=== PATIENT | male | born 1990 | race Caucasian/White ===

== ENCOUNTER 2024-06-21 19:16 | Emergency (ER) | payer BC ==
[~2024-06-21] VITALS: Ht 175.3 cm; Wt 63.5 kg
[2024-06-21 19:17] VITALS: PULSE 58; RESP 18; TEMP 98.7
[2024-06-21 19:37] LABS: BASOPHILS # (AUTO) 0.1 (0.0-0.1); BASOPHILS % 0.7 % (0.0-1.0); EOSINOPHILS # (AUTO) 0.3 (0.0-0.4); EOSINOPHILS % 4.5 % (0.0-6.0); HEMATOCRIT 43.1 % (38.2-49.6); HEMOGLOBIN 15.4 g/dL (14.0-18.0); LYMPHOCYTES # (AUTO) 2.2 (1.0-3.2); LYMPHOCYTES % 29.9 % (18.0-39.1); MEAN CORPUSCULAR HGB CONC 35.7 g/dL (31-35); MEAN CORPUSCULAR VOLUME 86.7 fL (81-99); MONOCYTES # (AUTO) 0.5 (0.2-0.8); MONOCYTES % 7.1 % (4.4-11.3); NEUTROPHILS # (AUTO) 4.2 (2.1-6.9); NEUTROPHILS % 57.7 % (38.7-80.0); PLATELET COUNT 261 x10e3/uL (140-360); RED BLOOD COUNT 4.97 x10e6/uL (4.3-5.7); RED CELL DISTRIBUTION WIDTH 12.1 % (11.7-14.4)
[2024-06-21] MEDS: ONDANSETRON HCL INJ 2MG/ML 2ML 2 MG/ML VIAL IV STA (19:51)
[2024-06-21] MEDS: Morphine 4mg INJECTION 4 MG/ML INJ IV STA (19:51)
[2024-06-21 19:57] LABS: ANION GAP 15.7 mmol/L (8-16); CALCIUM 9.1 mg/dL (8.4-10.2); CREATININE, SERUM 0.98 mg/dL (0.72-1.25); POTASSIUM 3.7 mmol/L (3.5-5.1)
[2024-06-21] MEDS ORDERED: LIDOCAINE HCL 1% LOCAL INJ 20 ML VIAL ONE (20:09)
[2024-06-21] MEDS ORDERED: BACITRACIN ZINC 0.9GM TP ONE ×2 (20:56→21:00)
[2024-06-21] MEDS ORDERED: AMOX TR-K CLV1 EAC2 PO (21:03)
[2024-06-21] MEDS: TETANUS/DIPHTHERIA TOX ADULT 0.5 ML SYR IM ONE (21:13)
[2024-06-21] MEDS ORDERED: HYDROCODON-ACE1 EAC9 PO ×2 (21:14→23:00)
[2024-06-21 21:25] VITALS: BP 126/78; PULSE 64; RESP 18; TEMP 98; O2SAT 98
== END 2024-06-21 21:28 | disposition home or self-care (01) ==
LOC: ER 19:19
DX: S81.811A Laceration without foreign body, right lower leg, initial encounter (principal); W26.8XXA Contact with other sharp object(s), not elsewhere classified, initial encounter; Y92.89 Other specified places as the place of occurrence of the external cause
CPT/HCPCS: 12005; 36415; 73590; 73610; 80048; 85025; 90471; 90714; 99284; J2003; J2270; J2405